=== PATIENT | male | born 1965 | race Caucasian/White ===

== ENCOUNTER → 2021-05-05 | Outpatient (CLI) | payer OTHER ==
[~2021-05-05] MED LIST: ASPIR 8181 MG PO; CARVEDILOL12.5 MG PO; ELIQUIS5 MG PO; FISH OIL 1,0001 EAC5 PO; FLONASE 0.05% N16 GM; GLUCOPHAGE XR500 MG PO; HYDROCHLOROTHIA25 MG PO; ISOSORBIDE MONO30 MG PO; LEVAQUIN750 MG PO; LIPITOR20 MG PO; LIPITOR40 MG PO; LOSARTAN POTAS100 MG PO; OCUVITE ADULT1 EAC1 PO; OMEPRAZOLE20 M1 PO; POTASSIUM99 M1 PO; TRICOR 48 MG TA48 MG PO; TYLENOL WITH C1 EACH PO
[2021-05-05 09:45] LABS: BUN/CREATININE RATIO 17 (0-10)
== END ==
LOC: LAB 08:55
PROVIDERS: Internal Medicine Cardiovascular Disease
DX: E78.5 Hyperlipidemia, unspecified (principal); I20.9 Angina pectoris, unspecified; I25.89 Other forms of chronic ischemic heart disease; I11.0 Hypertensive heart disease with heart failure; I50.22 Chronic systolic (congestive) heart failure; I42.0 Dilated cardiomyopathy; R06.02 Shortness of breath
CPT/HCPCS: 36415; 80053; 80061; 84439; 84443; 84481